=== PATIENT | female | born 1955 | race Two or more races ===

== ENCOUNTER 2018-11-23 11:40 | Emergency (ER) | payer MEDICAID ==
[~2018-11-23] VITALS: Ht 160 cm; Wt 74.8 kg
--- NOTE | 2018-11-23 11:50 | NUR ---
ED Nurse Note: pt walked in ED c/o right shoulder pain, pt states she fell yesterday and might have dislocated her shoulder. Pt denies other injury, hitting head, loc. Pt AA&ox4, gcs=15, skin warm and dry, resp even and unlabored, -n/v/d, ambulates w/ steady gait, CMS intact BUE/BLE, cap refill <3sec, pulses+2 radial noted, +tenderness on right shoulder, no open wound/redness/obvious deforminty noted. will cont monitor.
--- NOTE | 2018-11-23 12:00 | NUR ---
ED Nurse Note: addendum: pt has mild swelling on right wrist area, noted small bruises and tenderness on neal knee and abrasion [id number] on left knee. PA at the bedside. at the bedside, will cont monitor.
[2018-11-23] MEDS ORDERED: Norco 5mg/325mg tab ORAL ONE (12:15)
--- NOTE | 2018-11-23 12:20 | Emergency Room Report ---
History of Present Illness General Chief Complaint: Shoulder Injury Source: Patient Present Illness HPI 63-year-old female presents to the emergency department complaining of 9 out of 10 in severity pain to the right shoulder status post mechanical trip and fall while walking down the sidewalk yesterday around 5 PM. Patient denies hitting her head also consciousness and she denies midline neck or back pain. Patient reports pain radiating down the right arm she states that she is right-hand dominant she reports subjective swelling. Patient denies bruises, open wounds or bleeding. Patient has a history of high blood pressure and diabetes. She denies chest pain, palpitations, dizziness, loss of consciousness, or sensory or headaches. Patient reports that making a makeshift sling with her scarf helps to relieve the pain slightly. Denies paresthesias. Allergies: Uncoded Allergies: SEAFOOD (Allergy, Unknown, 02/22/08) Patient History Past Medical History: see triage record Past Surgical History: none Pertinent Family History: none Last Menstrual Period: none Now: No : 2 Para: 2 Immunizations: UTD Reviewed Nursing Documentation: PMH: Agreed; PSxH: Agreed Nursing Documentation-PMH Hx Cardiac Problems: No - hysterectomy Hx Hypertension: Yes Hx Asthma: Yes Hx Diabetes: Yes Review of Systems All Other Systems: negative except mentioned in HPI Physical Exam Vital Signs Date Time Temp Pulse Resp B/P (MAP) Pulse Ox O2 Delivery O2 Flow Rate FiO2 11/23/18 11:44 98.2 87 16 155/83 94 Room Air Sp02 EP Interpretation: reviewed, normal General Appearance: no apparent distress, alert, GCS 15, non-toxic Head: normocephalic, atraumatic Eyes: bilateral eye normal inspection, bilateral eye PERRL ENT: hearing grossly normal, normal voice Neck: full range of motion Respiratory: lungs clear, normal breath sounds, speaking full sentences Cardiovascular #1: regular rate, rhythm, normal capillary refill Cardiovascular #2: 2+ radial (R) Musculoskeletal: back normal, gait/station normal, normal range of motion, tender - Right anterior and lateral Shoulder TTP, no bruises, step-off or obvious deformities. no midline spinous process tenderness. Neurologic: alert, oriented x3, responsive, motor strength/tone normal, sensory intact, normal gait, speech normal, grossly normal Psychiatric: judgement/insight normal Skin: normal color, no rash, warm/dry, well hydrated Medical Decision Making PA Attestation Dr. Basilio is my supervising Physician whom patient management has been discussed with. Diagnostic Impression: Primary Impression: Contusion of shoulder, right Qualified Codes: S40.011A - Contusion of right shoulder, initial encounter Additional Impression: Shoulder pain, acute Qualified Codes: M25.511 - Pain in right shoulder ER Course 63-year-old female presents to the emergency department complaining of 9 out of 10 in severity pain to the right shoulder status post mechanical trip and fall while walking down the sidewalk yesterday around 5 PM. Patient denies hitting her head also consciousness and she denies midline neck or back pain. Patient reports pain radiating down the right arm she states that she is right-hand dominant she reports subjective swelling. Patient denies bruises, open wounds or bleeding. Patient has a history of high blood pressure and diabetes. She denies chest pain, palpitations, dizziness, loss of consciousness, or sensory or headaches. Patient reports that making a makeshift sling with her scarf helps to relieve the pain slightly. Denies paresthesias. Ddx considered but are not limited to Fracture, dislocation, contusion, Sprain/ Strain/Spasm. Vital signs: are WNL, pt. is afebrile H&PE are most consistent with musculoskeletal injury will perform imaging to r/ o fractures/dislocations. ORDERS: - X-ray Right Shoulder 3 views - negative for fx, Dislocation, or significant soft tissue injury, per preliminary read in ED, and signed by JAZLYN Marmolejo , my supervising physician has reviewed, and agrees with my interpretation. ED INTERVENTIONS: - [place] PO - Right arm Sling applied by career and technology education teacher. Pt. remains neurovascularly intact. DISCHARGE: At this time pt. is stable for d/c to home. Will provide printed patient care instructions, and any necessary prescriptions. Care plan and follow up instructions have been discussed with the patient prior to discharge. Other X-Ray Diagnostic Results Other X-Ray Diagnostic Results : X-Ray ordered: Right Shoulder # of Views/Limited Vs Complete: 3 View Indication: Pain EP Interpretation: Yes JAZLYN Xray: Interpretation reviewed, by supervising MD, and agrees with findings. Interpretation: no dislocation, no soft tissue swelling, no fractures Impression: No acute disease Electronically Signed by: Sophie Marmolejo PA-C Last Vital Signs Date Time Temp Pulse Resp B/P (MAP) Pulse Ox O2 Delivery O2 Flow Rate FiO2 11/23/18 11:44 98.2 87 16 155/83 94 Room Air Disposition: HOME, SELF-CARE Condition: Stable Scripts Acetaminophen With Codeine (T#3) (TYLENOL #3 TAB*) Y Tab 1 TAB ORAL Q6HR PRN for For Pain, #10 TAB Prov: Sophie Marmolejo 11/23/18 Patient Instructions: Shoulder Pain Additional Instructions: Take medications as directed. Follow up with a Primary Care Provider in 3-5 days, even if your symptoms have resolved. --Please review list of primary care clinics, if you do not already have a primary care provider Return sooner to ED if new symptoms occur, or current symptoms become worse. - Please note that this Emergency Department Report was dictated using [employer] corporate account director technology software, occasionally this can lead to erroneous entry secondary to interpretation by the dictation equipment. Sophie Marmolejo Nov 23, 2018 12:20
--- NOTE | 2018-11-23 12:22 | NUR ---
ED Nurse Note: xray at the bedside.
--- NOTE | 2018-11-23 12:23 | NUR ---
ED Nurse Note: sling applied on right arm per JAZLYN Barrios's verbal order.
[2018-11-23] MEDS ORDERED: ACETAMINOPHEN-1 EAC1 ORAL (13:06)
--- NOTE | 2018-11-23 13:30 | Diagnostic Imaging Report ---
EXAM: XR Right Shoulder Complete, 2 or More Views CLINICAL HISTORY: PAIN TECHNIQUE: Two or more views of the right shoulder. COMPARISON: No relevant prior studies available. FINDINGS: Bones/joints: Mild degenerative joint space loss and marginal osteophytes in the right acromioclavicular joint. Normal alignment is seen at the acromioclavicular and glenohumeral joints. No visible displaced fracture or dislocation. No osseous erosions. Coracoclavicular and subacromial spaces appear within normal limits. The clavicle and scapula appear intact. Soft tissues: Unremarkable. IMPRESSION: Mild degenerative changes in the right acromioclavicular joint.
[2018-11-23 13:57] VITALS: BP 122/79
--- NOTE | 2018-11-23 13:59 | NUR ---
ED Nurse Note: Pt was cleared to be dicharged from ERMD. Pt received prescription with discharge instruction. present at bedside. Pt verbalized understanding and improved pain level which was 2/10 upon discharge. Pt has sling on Rt arm, VSS, and ambulated to be discharged with accompanied.
== END 2018-11-23 13:57 | disposition home or self-care (01) ==
LOC: EMR 12:10
DX: S40.011A Contusion of right shoulder, initial encounter (principal); W01.0XXA Fall on same level from slipping, tripping and stumbling without subsequent striking against object, initial encounter; Y92.89 Other specified places as the place of occurrence of the external cause; I10 Essential (primary) hypertension; E11.9 Type 2 diabetes mellitus without complications; J45.909 Unspecified asthma, uncomplicated; Z91.013 Allergy to seafood; Z90.710 Acquired absence of both cervix and uterus
CPT/HCPCS: 99283

== ENCOUNTER 2019-09-10 18:42 | Emergency (ER) | payer MEDICAID ==
[~2019-09-10] VITALS: Ht 160 cm; Wt 74.8 kg
[~2019-09-10 18:42] MED LIST: ACETAMINOPHEN-1 EAC1 ORAL
[2019-09-10] MEDS ORDERED: GLIPIZIDE5 MG ORAL (19:10)
[2019-09-10] MEDS ORDERED: METFORMIN HCL1000 M1 ORAL (19:10)
[2019-09-10] MEDS ORDERED: ATENOLOL50 MG ORAL (19:10)
[2019-09-10] MEDS ORDERED: ATORVASTATIN CA10 MG ORAL (19:10)
--- NOTE | 2019-09-10 19:21 | NUR ---
ED Nurse Note: Pt ambulated to ED c/o pain in middle finger on L hand, pt got a splinter under her fingernail on sun, visibly swollen and red. Pt has been taking advil
[2019-09-10 19:22] VITALS: BP 143/86
[2019-09-10] MEDS ORDERED: Lidocaine 1% MPF 10mg/ml 5ml IM ONE (19:30)
[2019-09-10] MEDS ORDERED: Augmentin 875mg Tab ORAL ONE (19:30)
--- NOTE | 2019-09-10 20:04 | Emergency Room Report ---
History of Present Illness General Chief Complaint: Foreign Body Source: Patient Present Illness HPI 64 YO female presents to the ED c/o 08/21 in severity progressive left middle finger tenderness, pain, erythema and swelling. PT. reports has a retained splinter under the nail x 3 days. Pt. states warm soaks are not helping. She has hx of DM. Denies fevers or chills. Pt. denies bleeding. She reports some pus was noticed. Pt. is right hand dominant. She states palpation exacerbates her pain. She describes a throbbing sensation. No other aggravating or relieving factors. She denies finger pad tenderness. Allergies: Coded Allergies: IODINE (Verified Allergy, Unknown, 09/10/19) Uncoded Allergies: SEAFOOD (Allergy, Unknown, 02/22/08) Patient History Past Medical History: see triage record Past Surgical History: none Pertinent Family History: none Reviewed Nursing Documentation: PMH: Agreed; PSxH: Agreed Nursing Documentation-PMH Past Medical History: No History, Except For Hx Cardiac Problems: No - hysterectomy Hx Hypertension: Yes Hx Asthma: Yes Hx Diabetes: Yes Review of Systems All Other Systems: negative except mentioned in HPI Physical Exam Vital Signs Date Time Temp Pulse Resp B/P (MAP) Pulse Ox O2 Delivery O2 Flow Rate FiO2 09/10/19 19:04 98.4 71 16 143/86 (105) 95 Room Air Sp02 EP Interpretation: reviewed, normal General Appearance: no apparent distress, alert, GCS 15, non-toxic Head: normocephalic, atraumatic Eyes: bilateral eye normal inspection, bilateral eye PERRL ENT: hearing grossly normal, normal voice Neck: full range of motion Respiratory: lungs clear, normal breath sounds, speaking full sentences Cardiovascular #1: regular rate, rhythm, normal capillary refill Musculoskeletal: back normal, gait/station normal, normal range of motion, non- tender Neurologic: alert, oriented x3, responsive, motor strength/tone normal, sensory intact, speech normal, grossly normal Psychiatric: judgement/insight normal Skin: other - small 0.1cm retained FB in the ST of the left 3rd digit's nail bed. erythema noted in the soft tissues and some swelling to the distal portion of the finger. No finger pad ttp. Procedures Incision and Drainage Incision and Drainage : Consent: Verbal Site: LEft 3rd digit fingernail and nail bed Blade Size: 11 I & D Procedure: betadine prep, sterile drapes applied, sterile dressing applied Wound Location: upper extremity - left third digit fingernail and nailbed. Wound's Depth, Shape: superficial, linear Wound Length (cm): 1 Wound Explored: foreign body removed Anesthesia: 1% Lidocaine Volume Anesthetic (ccs): 4 Splint Applied?: No Sling Applied?: Yes Patient Tolerated: Well Complications: None Medical Decision Making PA Attestation Dr. Dupont is my supervising Physician whom patient management has been discussed with. Diagnostic Impression: Primary Impression: Foreign body hand-infection ER Course 64 YO female presents to the ED c/o 08/21 in severity progressive left middle finger tenderness, pain, erythema and swelling. PT. reports has a retained splinter under the nail x 3 days. Pt. states warm soaks are not helping. She has hx of DM. Denies fevers or chills. Pt. denies bleeding. She reports some pus was noticed. Pt. is right hand dominant. She states palpation exacerbates her pain. She describes a throbbing sensation. No other aggravating or relieving factors. She denies finger pad tenderness. Ddx considered but are not limited to cellulitis, retained FB, cyst/abscess, puncture wound, laceration Vital signs: are WNL, pt. is afebrile H&PE are most consistent with small 0.1cm retained FB in the ST of the left 3rd digit's nail bed. ORDERS: none required at this time, the diagnosis is clinical ED INTERVENTIONS: - Pt. was anesthetized by 4cc 1 % lidocaine injected under the tendon sheath of the left 3rd flexor digitalis. - Incision of the nail above the splinter was lanre, the edges were retracted with tweezers to allow access. The splinter was then removed with forceps in one attempt. The entire piece appeared to be removed. - Bacitracin and sterile dressing was applied by RN - Left arm Sling applied by hvac operations technician. Pt. remains neurovascularly intact. DISCHARGE: At this time pt. is stable for d/c to home. Will provide printed patient care instructions, and any necessary prescriptions. Care plan and follow up instructions have been discussed with the patient prior to discharge. Last Vital Signs Date Time Temp Pulse Resp B/P (MAP) Pulse Ox O2 Delivery O2 Flow Rate FiO2 09/10/19 19:22 98.4 74 16 143/86 95 Room Air Disposition: HOME, SELF-CARE Condition: Stable Scripts Acetaminophen* (TYLENOL EXTRA STRENGTH*) 500 Mg Tablet 500 MG ORAL Q6H, #30 TAB 0 Refills Prov: Sophie Marmolejo 09/10/19 Mupirocin* (MUPIROCIN*) 22 Gm Oint...g. 1 APPLIC TOPIC THREE TIMES A DAY, #22 GM Prov: Sophie Marmolejo 09/10/19 Amoxicillin/Potassium Clav 875-125* (AUGMENTIN 875-125 TABLET*) 1 Each Tablet 1 TAB ORAL TWICE A DAY for 7 Days, #14 TAB Prov: Sophie Marmolejo 09/10/19 Referrals: [facility] (PCP) Patient Instructions: Sliver Removal, Care After Additional Instructions: Take medications as directed. Follow up with a Primary Care Provider in 3-5 days, even if your symptoms have resolved. Return sooner to ED if new symptoms occur, or current symptoms become worse. - Please note that this Emergency Department Report was dictated using [employer] processor technology software, occasionally this can lead to erroneous entry secondary to interpretation by the dictation equipment. Sophie Marmolejo Sep 10, 2019 20:04
[2019-09-10] MEDS ORDERED: AUGMENTIN 875-1 EAC1 ORAL (20:24)
[2019-09-10] MEDS ORDERED: TYLENOL EXTRA500 MG ORAL (20:24)
[2019-09-10] MEDS ORDERED: MUPIROCIN22 GM TOPIC (20:24)
[2019-09-10] MEDS ORDERED: Neosporin Oint Ud Pkt TOPIC ONE (20:30)
[2019-09-10 20:50] VITALS: BP 143/86
--- NOTE | 2019-09-10 20:50 | NUR ---
ER DISCHARGE NOTE: Patient is cleared to be discharged per ERMD, pt is aox4, on room air, with stable vital signs. pt was given dc and prescription instructions, pt was able to verbalize understanding, pt id band removed. pt is able to ambulate with steady gait. pt took all belongings.
== END 2019-09-10 20:50 | disposition home or self-care (01) ==
LOC: EMR 19:42
DX: S60.453A Superficial foreign body of left middle finger, initial encounter (principal); L08.9 Local infection of the skin and subcutaneous tissue, unspecified; Z91.041 Radiographic dye allergy status; Z91.013 Allergy to seafood; Z90.710 Acquired absence of both cervix and uterus; I10 Essential (primary) hypertension; J45.909 Unspecified asthma, uncomplicated; E11.9 Type 2 diabetes mellitus without complications; X58.XXXA Exposure to other specified factors, initial encounter; Y92.9 Unspecified place or not applicable
CPT/HCPCS: 10060; Z7502; 99283

== ENCOUNTER 2020-01-17 15:47 | Emergency (ER) | payer MEDICAID ==
[~2020-01-17] VITALS: Ht 160 cm; Wt 76.2 kg
[~2020-01-17 15:47] MED LIST changes: +ATENOLOL50 MG ORAL; +ATORVASTATIN CA10 MG ORAL; +AUGMENTIN 875-1 EAC1 ORAL; +GLIPIZIDE5 MG ORAL; +METFORMIN HCL1000 M1 ORAL; +MUPIROCIN22 GM TOPIC; +TYLENOL EXTRA500 MG ORAL
[2020-01-17 15:54] VITALS: BP 149/78
--- NOTE | 2020-01-17 16:00 | NUR ---
ED Nurse Note: patient walked into ED from home c/o right middle finger pain s/p injury- slamming her right middle finger at the refrigerator door 30 minutes prior to arrival. patient rates 10/10, crying. ice pack provided. patient is alert awake x4 ambulatory.
[2020-01-17] MEDS ORDERED: Ketorolac 30mg Inj IM ONE (16:15)
--- NOTE | 2020-01-17 16:22 | Emergency Room Report ---
History of Present Illness General Chief Complaint: Upper Extremity Injury Source: Patient, Medical Record (Sophie Marmolejo) Present Illness HPI 64-year-old female presents to the emergency department complaining of 10 out of 10 in severity localized pain to the right middle finger x30 minutes. Patient reports that she smashed her right hand in the refrigerator and had acute onset of her pain. Patient reports swelling and severe tenderness. Patient reports pain with any attempt to move the affected finger. 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 The patient is right-hand dominant. She denies blood or discoloration up under the nail. She denies open wounds or bleeding. (Sophie Marmolejo) Allergies: Coded Allergies: IODINE (Verified Allergy, Unknown, 09/10/19) Uncoded Allergies: SEAFOOD (Allergy, Unknown, 02/22/08) Patient History Past Medical History: see triage record, DM, asthma Past Surgical History: none Pertinent Family History: none Last Menstrual Period: N/A Now: No Reviewed Nursing Documentation: PMH: Agreed; PSxH: Agreed (Sophie Marmolejo) Nursing Documentation-PMH Hx Cardiac Problems: No - hysterectomy Hx Hypertension: Yes Hx Asthma: Yes Hx Diabetes: Yes (Sophie Marmolejo) Review of Systems All Other Systems: negative except mentioned in HPI (Sophie Marmolejo) Physical Exam Vital Signs Date Time Temp Pulse Resp B/P (MAP) Pulse Ox O2 Delivery O2 Flow Rate FiO2 01/17/20 15:54 98.4 72 18 149/78 (101) 95 Room Air Sp02 EP Interpretation: reviewed, normal General Appearance: no apparent distress, alert, GCS 15, non-toxic Head: normocephalic, atraumatic Eyes: bilateral eye normal inspection, bilateral eye PERRL ENT: hearing grossly normal, normal voice Neck: full range of motion Respiratory: chest non-tender, lungs clear, normal breath sounds, speaking full sentences Cardiovascular #1: regular rate, rhythm, normal capillary refill Musculoskeletal: normal range of motion - with pain, gait/station normal, tender - diffuse ttp to the LMF, no increased laxity, no obvious deformity, mild swelling. no bruising or open wounds. Neurologic: alert, motor strength/tone normal, oriented x3, sensory intact, responsive, speech normal Psychiatric: judgement/insight normal Skin: normal color, normal inspection (Sophie Marmolejo) Medical Decision Making PA Attestation Dr. Rawls Is my supervising Physician whom patient management has been discussed with. (Sophie Marmolejo) Diagnostic Impression: Primary Impression: Crushing injury of finger of right hand Additional Impression: Sprain of finger, right Qualified Codes: S63.632A - Sprain of interphalangeal joint of right middle finger, initial encounter ER Course 64-year-old female presents to the emergency department complaining of 10 out of 10 in severity localized pain to the right middle finger x30 minutes. Patient reports that she smashed her right hand in the refrigerator and had acute onset of her pain. Patient reports swelling and severe tenderness. Patient reports pain with any attempt to move the affected finger. 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 The patient is right-hand dominant. She denies blood or discoloration up under the nail. She denies open wounds or bleeding. Ddx considered but are not limited to Fracture, dislocation, contusion, Compartment syndrome, Sprain/Strain/Spasm, subungual hematoma, or nail-bed laceration just to name a few Vital signs: are WNL, pt. is afebrile H&PE are most consistent with musculoskeletal injury will perform imaging to r/ o fractures/dislocations. - Pt. histrionic with display of pain. with movement of my hands she screams but isnt being touched. when asked what medications she takes for her diabetes. Patient use the affected fingers to count the opposite fingers as she listed off her medications without grimacing or verbalizing pain. Afterward patient had a get severe pain where she would scream without being touched. This is a crush injury so compartment syndrome is a possibility however the finger is not tense and I do not suspected at this time. Pain out of proportion to exam is most likely psychological. ORDERS: - X-ray Right Hand - negative for fx, Dislocation, or significant soft tissue injury, per preliminary read in ED, and signed by JAZLYN Marmolejo, my supervising physician has reviewed, and agrees with my interpretation. ED INTERVENTIONS: - Toradol IM Right middle finger splint was applied by technology infusion specialist. Pt. remains neurovascularly intact. DISCHARGE: At this time pt. is stable for d/c to home. Will provide printed patient care instructions, and any necessary prescriptions. Care plan and follow up instructions have been discussed with the patient prior to discharge. (Sophie Marmolejo) Other X-Ray Diagnostic Results Other X-Ray Diagnostic Results : X-Ray ordered: Right Hand # of Views/Limited Vs Complete: 3 View Indication: Pain PA Xray: Interpretation reviewed, by supervising MD, and agrees with findings. Interpretation: no dislocation, no soft tissue swelling, no fractures Impression: No acute disease Electronically Signed by: Sophie Marmolejo PA-C (Sophie Marmolejo) Other X-Ray Diagnostic Results : Electronically Signed by: Domo Benitez documentation of Xray reviewed by me and is accurate, Miguel Rawls MD (Miguel Rawls MD) Last Vital Signs Date Time Temp Pulse Resp B/P (MAP) Pulse Ox O2 Delivery O2 Flow Rate FiO2 01/17/20 15:54 98.4 72 18 149/78 (101) 95 Room Air (Sophie Marmolejo) Disposition: HOME, SELF-CARE Condition: Stable Scripts Acetaminophen* (TYLENOL EXTRA STRENGTH*) 500 Mg Tablet 500 MG ORAL Q6H, #30 TAB 0 Refills Prov: Sophie Marmolejo 01/17/20 Patient Instructions: Crush Injury, Fingers or Toes, [id number], Finger Sprain, [id number] Additional Instructions: Take medications as directed. Follow up with a Primary Care Provider in 3-5 days, even if your symptoms have resolved. --Please review list of primary care clinics, if you do not already have a primary care provider Return sooner to ED if new symptoms occur, or current symptoms become worse. Do not drink alcohol, drive, or operate heavy machinery while taking [ ] as this may cause drowsiness. - Please note that this Emergency Department Report was dictated using [employer] technology software, occasionally this can lead to erroneous entry secondary to interpretation by the dictation equipment. Sophie Marmolejo Jan 17, 2020 16:22 Miguel Rawls MD Jan 18, 2020 05:44
--- NOTE | 2020-01-17 16:45 | Diagnostic Imaging Report ---
EXAM: XR Right Hand Complete, 3 or More Views CLINICAL HISTORY: PAIN TECHNIQUE: Frontal, lateral and oblique views of the right hand. COMPARISON: No relevant prior studies available. FINDINGS: Bones/joints: No acute fracture. Soft tissues: No radiodense foreign body. Jewelry on the wrist. IMPRESSION: No acute fracture.
[2020-01-17] MEDS ORDERED: TYLENOL EXTRA500 MG ORAL (16:56)
[2020-01-17 17:04] VITALS: BP 149/78
--- NOTE | 2020-01-17 17:04 | NUR ---
ER DISCHARGE NOTE: Patient is cleared to be discharged per [facility], pt is aox4, on room air, with stable vital signs. pt was given dc and prescription instructions, pt was able to verbalize understanding, pt id band removed without complications. pt is able to ambulate with steady gait. pt took all belongings. finger splint applied as ordered by JEANNINE PRADO.
== END 2020-01-17 17:35 | disposition home or self-care (01) ==
LOC: EMR 16:10
DX: S67.192A Crushing injury of right middle finger, initial encounter (principal); S63.632A Sprain of interphalangeal joint of right middle finger, initial encounter; X58.XXXA Exposure to other specified factors, initial encounter; Y92.9 Unspecified place or not applicable; Z90.710 Acquired absence of both cervix and uterus; I10 Essential (primary) hypertension; E11.9 Type 2 diabetes mellitus without complications; Z91.041 Radiographic dye allergy status; Z91.013 Allergy to seafood
CPT/HCPCS: 29130; 73130; 96372; J1885; Z7502; 99283